=== PATIENT | female | born 1995 | race Caucasian/White ===

== ENCOUNTER 2021-10-10 01:38 | Emergency (ER) | payer OTHER ==
[~2021-10-10] VITALS: Ht 177.8 cm; Wt 113.4 kg
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
[2021-10-10] MEDS ORDERED: ONDANSETRON 4 MG/2 ML VIAL IM ONE (01:50)
--- NOTE | 2021-10-10 01:50 | NUR ---
PT TO LOBBY.
[2021-10-10] MEDS ORDERED: NACL 0.9% 1,000 ML IV ONE (01:55)
[2021-10-10] MEDS ORDERED: ONDANSETRON 4 MG/2 ML VIAL IVP ONE (01:55)
[2021-10-10 01:56] VITALS: BP 136/93
[2021-10-10] MEDS ORDERED: ONDA-188 SL (02:17)
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
--- NOTE | 2021-10-10 03:20 | NUR ---
Patient discharged with v/s stable. Written and verbal after care instructions given and explained. Patient alert, oriented and verbalized understanding of instructions. Wheel Chair Assisted with TO LOBBY. All questions addressed prior to discharge. ID band removed. Patient advised to follow up with PMD. Rx of TO BELKYS given. Patient educated on indication of medication including possible reaction and side effects. Opportunity to ask questions provided and answered.
[2021-10-10 03:32] VITALS: BP 129/77
== END 2021-10-10 03:20 | disposition home or self-care (01) ==
LOC: MED 01:38
DX: F12.929 Cannabis use, unspecified with intoxication, unspecified (principal); R11.2 Nausea with vomiting, unspecified; F41.9 Anxiety disorder, unspecified; Z79.899 Other long term (current) drug therapy
CPT/HCPCS: 84703; 96361; 96374; 99283; J2405; J7030

== ENCOUNTER 2022-02-10 21:27 | Emergency (ER) | payer OTHER ==
[~2022-02-10] VITALS: Ht 152.4 cm; Wt 80.7 kg
[~2022-02-10 21:27] MED LIST: ONDA-188 SL
[2022-02-10 21:51] VITALS: BP 121/86
--- NOTE | 2022-02-10 23:19 | NUR ---
called patient first time - no show
--- NOTE | 2022-02-11 00:11 | NUR ---
called second time - no show
--- NOTE | 2022-02-11 00:14 | NUR ---
PATIENT LEFT WITHOUT BEING SEEN BY DR. Glover. NO FURTHER CARE PROVIDED FOR PATIENT.
== END 2022-02-10 23:19 | disposition left against medical advice (07) ==
LOC: MED 21:27
DX: R42 Dizziness and giddiness (principal); Z53.21 Procedure and treatment not carried out due to patient leaving prior to being seen by health care provider